=== PATIENT | male | born 1960 | race Caucasian/White ===

== ENCOUNTER 2016-08-19 12:00 | Outpatient (CLI) | payer BC ==
[~2016-08-19] VITALS: Ht 176.5 cm; Wt 71.7 kg
== END 2016-08-19 12:56 ==
LOC: PREOP 12:00
PROVIDERS: ATTEND Surgery
DX: Z01.818 Encounter for other preprocedural examination (principal); Z12.11 Encounter for screening for malignant neoplasm of colon

== ENCOUNTER → 2016-08-20 | Day surgery (SDC) | payer BC ==
[~2016-08-20] VITALS: Ht 176.5 cm; Wt 71.7 kg
[~2016-08-20] MED LIST: MIDAZOLAM 2 MG/2 ML (VERSED) VIAL ONE; NS IV 1000 ML 1,000 ML IV STA; NS IV 1000 ML 1,000 ML ONE; proPOfol 200 MG/20 ML (DIPRIVAN) VIAL IV ONE
--- OUTSIDE RECORDS SUMMARY | 2016-08-20 07:03 | XMS REPORT | Continuity of Care Document ---
Author Author [facility] Organization [facility] Address Unknown Phone Unavailable Support Name Relationship Address Phone ARLETTE SHAH DO Caregiver [address] [place] [address] Insurance Providers Payer Name Policy Number [facility]scriber Name [id number] Storm Beebe N [facility] Self / Same As Patient Advance Directives Directive Response Recorded Date/Time Advance Directives No 08/19/16 11:18am Health Care Power of Senior Applications Architect No 08/19/16 11:18am Resuscitation Status Full Code 08/19/16 11:18am Problems No problem information available. Medications No known medications. Social History Social History Problem Response Recorded Date/Time Alcohol Use Denies Use 08/19/2016 11:18am Recreational Drug Use No 08/19/2016 11:18am Recent Foreign Travel No 08/19/2016 11:17am Recent Infectious Disease Exposure No 08/19/2016 11:17am Sexually Transmitted Disease No 08/19/2016 11:18am HIV/AIDS No 08/19/2016 11:18am Smoking Status Current Everyday Smoker 08/19/2016 11:18am Type Used Cigarettes 08/19/2016 11:18am Recent Hopitalizations No 08/19/2016 11:18am Sexually Transmitted Disease No 08/19/2016 11:18am Query Response Start Date Stop Date Smoking Status Current Everyday Smoker Hospital Discharge Instructions No hospital discharge instructions. Plan of Care Discharge Date 08/19/16 12:56pm Prescriptions See Medication Section Functional Status No functional status results. Allergies, Adverse Reactions, Alerts No known allergies. Immunizations No immunization records. Vital Signs Acute Vital Signs Vital Response Date/Time Height (Feet) 5 feet 08/19/2016 11:17am Height (Inches) 9.50 inches 08/19/2016 11:17am Height (Calculated Centimeters) 176.203155 cm 08/19/2016 11:17am Weight (Pounds) 158 pounds 08/19/2016 11:17am Weight (Ounces) 0.0 oz 08/19/2016 11:17am Weight (Calculated Grams) 07966.60 gm 08/19/2016 11:17am Weight (Calculated Kilograms) 71.447858 kilograms 08/19/2016 11:17am Calculated BMI 23.0 08/19/2016 11:17am Results No known relevant diagnostic tests, laboratory data and/or discharge summary. Procedures No known history of procedures. Encounters Encounter Location Arrival/Admit Date Discharge/Depart Date Attending Provider Departed Clinic [facility] 08/19/16 12:00pm 08/19/16 12: 56pm ARLETTE SHAH DO
--- OUTSIDE RECORDS SUMMARY | 2016-08-20 07:04 | XMS REPORT | Continuity of Care Document ---
Author Author [facility] Organization [facility] Address Unknown Phone Unavailable Support Name Relationship Address Phone ARLETTE SHAH DO Caregiver [address] [place] [address] Insurance Providers Payer Name Policy Number Subscriber Name [id number] Storm Beebe N 18 Self / Same As Patient Advance Directives Directive Response Recorded Date/Time Advance Directives No 08/19/16 11:18am Health Care Power of Enrollment Nurse No 08/19/16 11:18am Resuscitation Status Full Code [...] 9.50 inches 08/19/2016 11:17am Height (Calculated Centimeters) 176.306739 cm 08/19/2016 11:17am Weight (Pounds) 158 pounds 08/19/2016 11:17am Weight (Ounces) 0.0 oz 08/19/2016 11:17am Weight (Calculated Grams) 79401.60 gm 08/19/2016 11:17am Weight (Calculated Kilograms) 71.577630 kilograms 08/19/2016 11:17am Calculated BMI 23.0 08/19/2016 11:17am Results No known relevant diagnostic tests, laboratory data and/or discharge summary. Procedures No known history of procedures. Encounters Encounter Location Arrival/Admit Date Discharge/Depart Date Attending Provider Departed Clinic [facility] 08/19/16 12:00pm 08/19/16 12: 56pm RALETTE SHAH DO
--- NOTE | 2016-08-20 08:12 | Progress Note-Pre Operative ---
Pre-Operative Progress Note H&P Reviewed The H&P was reviewed, patient examined and no changes noted. Date H&P Reviewed: Aug 20, 2016 Time H&P Reviewed: 08:11 Pre-Operative Diagnosis: screening colonoscopy ARLETTE SHAH DO Aug 20, 2016 8:12 am
--- NOTE | 2016-08-20 08:42 | Discharge Inst-Simple/Standard ---
Discharge Inst-Standard Patient Instructions/Follow Up Plan of Care/Instructions/FU: Follow up with Dr. Padron as needed Will need repeat colonoscopy in 10 years or sooner if recent family hx of colon cancer or changes in current condition. Activity as Tolerated: Yes Discharge Diet: No Restrictions MALLORY AKINS APRN Aug 20, 2016 08:42
[2016-08-20 08:45] VITALS: BP 119/76
[2016-08-20 09:00] VITALS: BP 128/82
[2016-08-20 09:08] VITALS: BP 119/68
--- NOTE | 2016-08-20 09:45 | Progress Note-Post Operative ---
Post-Operative Progess Note Pre-Operative Diagnosis screening colonoscopy Post-Operative Diagnosis normal colon Post-Op Procedure Note Date of Procedure: Aug 20, 2016 Name of Procedure: colonoscopy Procedure Note/Findings see note Anesthesia Type per housecleaner floor Estimated blood loss (mL): none Specimen(s) collected none ARLETTE SHAH DO Aug 20, 2016 9:45 am
[2016-08-20 10:23] VITALS: BP 119/68
--- NOTE | 2016-08-21 13:04 | OPERATIVE REPORT ---
PROCEDURE PHYSICIAN: ARLETTE SHAH DATE OF PROCEDURE: 08/20/2016 PREOPERATIVE DIAGNOSIS: Screening colonoscopy. POSTOPERATIVE DIAGNOSIS: Normal colon. PROCEDURE: Colonoscopy. SURGEON: Nereida. ANESTHESIA: Per TRIMMER MACHINE OPERATOR. ESTIMATED BLOOD LOSS: None. COMPLICATIONS: None. INDICATIONS: The patient is a 56-year-old male in need of screening colonoscopy. He understands the risks and benefits and wished to proceed with procedure. Consent was signed on the chart. PROCEDURE: The patient was taken to the endoscopy suite, placed in left lateral recumbent position. Timeout was performed. Digital rectal exam was performed. There were no palpable polyps, masses or ulcerations. Some small fibroepithelial tags present. The scope was inserted in the rectum and advanced all way cecum without any difficulty. Prep was adequate. The scope was slowly retracted back. There were no polyps, masses, ulcerations within the cecum, ascending, transverse, descending and sigmoid colon. The scope was then brought back to the rectum where it was also retroflexed noting some small fibroepithelial tags. The scope was returned to its normal position and then slowly withdrawn until completely removed. The patient tolerated the procedure well without any complications and taken to the recovery room in stable condition. RECOMMENDATIONS: The patient will need repeat colonoscopy in 10 years unless has change in condition, which be done at that time. Job ID: [id number] Dictated Date: 08/20/2016 09:47:26 Tilt Wall Supervisor Date: 08/21/2016 12:59:13 / susan
== END | disposition home or self-care (01) ==
LOC: ENDO 07:00
PROVIDERS: ATTEND Surgery
DX: Z12.11 Encounter for screening for malignant neoplasm of colon (principal)

== ENCOUNTER → 2022-11-13 | Outpatient (CLI) | payer BC ==
--- NOTE | 2022-11-13 13:26 | Diagnostic Imaging Report ---
PROCEDURE: MRI left joint lower extremity without contrast. TECHNIQUE: Multiplanar, multisequence non contrast-enhanced MRI of the left lower extremity was accomplished. INDICATION: Left knee pain COMPARISON: None FINDINGS: No acute fracture seen in the left knee. Alignment appears normal. There is mild bone marrow edema at the posterior and medial aspect of the lateral femoral condyle. There are small marginal osteophytes in all 3 compartments. There is a small left knee joint effusion and a small Alvares's cyst. The articular cartilage in the patellofemoral compartment demonstrates mild thinning with heterogeneity and surface irregularity. The cartilage in the medial compartment demonstrates moderate to marked thinning with heterogeneity and surface irregularity. The cartilage in the lateral compartment demonstrates mild thinning with no full-thickness defects. The medial meniscus has a complex tear throughout, with marked substance loss. The lateral meniscus demonstrates a complex predominantly horizontal tear involving the posterior horn and body extending into the anterior horn. There is marked mucoid degeneration of the anterior cruciate ligament. The posterior cruciate ligament is intact. The medial collateral ligament appears intact. The lateral collateral ligamentous complex is intact. The extensor mechanism is intact. The medial and lateral retinacula are intact. There is fluid distention into the popliteal recess. IMPRESSION: 1. Tearing of the medial and lateral menisci. 2. Degenerative change and cartilage loss in the left knee, most pronounced in the medial compartment. 3. Marked mucoid degeneration of the anterior cruciate ligament. 4. Small left knee joint effusion with a small Alvares's cyst. Dictated by: Dictated on workstation # [id number]
== END ==
LOC: RAD 09:05
PROVIDERS: ATTEND Nurse Practitioner Family
DX: S83.242A Other tear of medial meniscus, current injury, left knee, initial encounter (principal); S83.282A Other tear of lateral meniscus, current injury, left knee, initial encounter; M17.12 Unilateral primary osteoarthritis, left knee; M71.22 Synovial cyst of popliteal space [Baker], left knee; X58.XXXA Exposure to other specified factors, initial encounter
CPT/HCPCS: 73721